=== PATIENT | male | born 1990 | race Hispanic/Latino ===

== ENCOUNTER 2025-09-15 05:54 | Emergency (ER) | payer OTHER ==
[2025-09-15] MEDS ORDERED: Acetaminophen 500 MG TAB ONE (07:48)
[2025-09-15] MEDS ORDERED: Orphenadrine Citrate 60 MG/2 ML VIAL ONE (07:49)
[2025-09-15] MEDS ORDERED: Ketorolac Tromethamine 30 MG (1 mL) VIAL ONE (07:49)
[2025-09-15 09:26] LABS: #Basophils Less than 0.03 10x3/uL (0.0-0.2); #Eosinophils Less than 0.03 10x3/uL (0.0-0.7); #Monocytes 0.60 10x3/uL (0.11-0.59); #Neutrophils 6.09 10x3/uL (1.40-6.50); %Basophils 0.2 % (0.0-1.0); %Eosinophils 0.2 % (0.0-10.0); %Lymphocytes 17.1 % (21.0-51.0); %Monocytes 7.4 % (0.0-10.0); %Neutrophils 74.9 % (42.0-75.0); Hematocrit 41.1 % (42.0-52.0); Hemoglobin 14.6 g/dL (14.0-18.0); Mean Corpuscular Hemoglobin 31.5 pg (27.0-31.0); Mean Corpuscular Volume 88.8 fL (78.0-98.0); Platelet Count 285 10x3/uL (130-400); Red Blood Cell (RBC) Count 4.63 mill/uL (4.70-6.10); White Blood Cell (WBC) Count 8.14 10x3/uL (4.8-10.8)
[2025-09-15 09:51] LABS: ALT (SGPT) 42 U/L (Less than 45); AST (SGOT) 46 U/L (11-34); Albumin 4.3 g/dL (3.1-4.5); Alkaline Phosphatase 70 U/L (40-110); Anion Gap 14 mmol/L (10-20); BUN (Urea Nitrogen) 14 mg/dL (8.9-20.6); Bilirubin, Total 0.5 mg/dL (0.3-1.2); Calc. Creatinine Clearance 0 mL/min (70-130); Calcium 9.3 mg/dL (7.8-10.44); Carbon Dioxide 25 mmol/L (22-29); Chloride 104 mmol/L (98-107); Globulin 2.8 g/dL (2.4-3.5); Glucose 100 mg/dL (70-105); Potassium 4.1 mmol/L (3.5-5.1); Sodium 139 mmol/L (136-145)
== END 2025-09-15 10:36 | disposition home or self-care (01) ==
LOC: ERS 05:54 → EEVIPCON 05:54 → ERS 10:36
DX: S39.012A Strain of muscle, fascia and tendon of lower back, initial encounter (principal); R55 Syncope and collapse; X50.0XXA Overexertion from strenuous movement or load, initial encounter; Y92.149 Unspecified place in prison as the place of occurrence of the external cause
CPT/HCPCS: 80053; 84484; 85025; 93005; J1885; J2360